=== PATIENT | female | born 1965 | race Caucasian/White ===

== ENCOUNTER → 2018-03-03 | Outpatient (CLI) | payer BC, OTHER ==
[2016-01-01 17:32] VITALS: BP 150/76
[~2018-03-03] MED LIST: AZEL23SP NS; DEXL60CA2 PO; DOCU-109 PO; FERR159T3 PO; IRON1CAP14 PO; LISI-334 PO; METF10007 PO; NAPR-514 PO; PRED-220 PO; PSYL0.527 PO; TRIA15OI TP; [UNRECOGNIZED DRUG - REMARK] PO; [UNRECOGNIZED DRUG - REMARK] PO
--- NOTE | 2018-03-03 16:27 | KCIC ---
Complete abdomen ultrasound study Clinical indications: Abdominal pain FINDINGS: The pancreas is poorly visualized due to overlying bowel gas. No focal aneurysmal dilatation of the abdominal aorta is seen. The intrahepatic portion of the IVC is unremarkable. Fatty infiltration of the liver is seen. This decreases the sensitivity of sonography to detect focal hepatic lesions. The liver is enlarged measuring 21.2 cm in length. The gallbladder is normal without gallstones. The extra hepatic bile duct measures 10 mm in caliber which is dilated. The length of the right kidney is 12.2 cm and the length of the left kidney is 12.8 cm. No hydronephrosis or renal mass or perinephric fluid collection is seen on either side. The spleen measures 12.1 cm in length which is normal. No ascites is evident. IMPRESSION: Normal gallbladder. Dilated common bile duct measuring up to 10 mm in caliber. Correlation with liver function tests is recommended since a distal common bile duct obstruction is possible. Hepatomegaly. Fatty infiltration of the liver. Electronically signed by: Chaparro Levy MD (03/03/2018 4:24 PM) [facility]
--- NOTE | 2018-03-03 16:47 | KCIC ---
Thyroid sonogram Clinical indications: Enlarged thyroid gland FINDINGS: The longitudinal and AP and transverse dimensions of the right lobe are 0.9 cm and 1.6 cm and 2.0 cm respectively. The right lobe is heterogeneous with multiple small nodules. The largest nodule is seen within the inferior aspect measuring 9 mm in size. Isthmus measures 6 mm in thickness and contains a solid heterogeneous nodule measuring 11 mm in size. The longitudinal and AP and transverse dimensions of the left lobe are 3.9 cm and 1.4 cm and 1.9 cm respectively. The left lobe is heterogeneous with multiple small nodules. There is a hypoechoic nodule within the posterior mid aspect measuring 9 mm. This has a cystic appearance. IMPRESSION: Multiple thyroid nodules. Recommend six-month follow-up sonogram. Electronically signed by: Chaparro Levy MD (03/03/2018 4:43 PM) [facility]
== END | disposition home or self-care (01) ==
LOC: KCIC US 12:19
PROVIDERS: ATTEND Family Medicine
DX: E04.2 Nontoxic multinodular goiter (principal); K76.0 Fatty (change of) liver, not elsewhere classified; K83.8 Other specified diseases of biliary tract; R16.0 Hepatomegaly, not elsewhere classified
CPT/HCPCS: 76536; 76700

== ENCOUNTER → 2018-03-28 | Outpatient (CLI) | payer BC ==
[2016-01-01 17:32] VITALS: BP 150/76
--- NOTE | 2018-03-28 12:13 | KCIC ---
History: Routine screening. Technique: Bilateral digital mammographic routine views were obtained with CAD - computer aided detection. Comparison: March 05, 2015. Findings: Breast Tissue Density B :The breast tissue is composed of mixed fatty and fibroglandular tissue. There is a small periareolar density on the left seen on the CC view only. There are no suspicious microcalcifications or areas of architectural distortion. Impression: Recommend the patient return for an anteriorly compressed MLO view of the left breast with the nipple in profile. Ultrasound may be necessary as well to exclude possible small periareolar mass. The patient and the clinical service will be contacted by the radiology staff for further instructions. BI-RADS Category 0: Incomplete: Need additional imaging evaluation. A mammogram does not have 100% sensitivity and therefore a negative imaging study should not delay further work up of a suspicious abnormality. The patient will receive a letter with the results in the mail. Patient information is entered into the reminder system with a target due date for the next screening mammogram. The patient will receive a reminder. "Our facility is accredited by the [employer] Mammography Program." Electronically signed by: Kavon Morgan III, MD (03/28/2018 12:09 PM) [facility]
== END | disposition home or self-care (01) ==
LOC: KCIC MAMMO 09:44
PROVIDERS: ATTEND Family Medicine
DX: Z12.31 Encounter for screening mammogram for malignant neoplasm of breast (principal)
CPT/HCPCS: 77067

== ENCOUNTER → 2018-04-21 | Outpatient (CLI) | payer BC ==
[2016-01-01 17:32] VITALS: BP 150/76
--- NOTE | 2018-04-22 17:14 | KCIC ---
Left breast diagnostic digital mammogram: Reason for examination: Possible nodule on screening mammogram. Comparison is made to previous study dated 03/28/2018. Additional left oblique view was obtained for further evaluation of possible nodule seen on cc view. In the retroareolar 3:00 position, there appears to be a tiny hypodense 4.7 mm nodule and superiorly in the left breast 2 cm above the nipple at the 1:30 position, there is a 1 cm nodule. Further evaluation with ultrasound will follow. IMPRESSION: Small nodules persist anteriorly in the left breast. Ultrasound to follow. BI-RADS Category 0: Incomplete. Needs additional imaging evaluation. Left breast ultrasound: Left whole breast ultrasound including evaluation of all 4 quadrants and the retroareolar and axillary regions of the left breast was performed. In the 1:30 position 2 cm from the nipple, there is a 9.3 x 6.8 x 3.2 mm hypoechoic nodule which appears to show some vascular flow. This lies fairly superficially within the parenchyma. This corresponds with the lesion seen at the 1:30 position mammographically. In the retroareolar 3:00 position, there is a hypoechoic circumscribed lesion measuring 4.6 mm in size. Further evaluation with aspiration or biopsy is recommended. No other cystic or solid lesions are seen. No abnormal appearing lymph nodes are seen in the axilla. IMPRESSION: 9.3 mm solid nodule with increased vascularity in the 1:30 position 2 cm from the nipple. Recommend ultrasound biopsy. 4.6 mm hypoechoic nodule in the retroareolar 3:00 position. Recommend aspiration or biopsy. BI-RADS Category 4: Suspicious. These findings have been discussed with the patient and the patient's nurse practitioner, Divine Beckwith, will be notified about these findings. This patient's information has been entered into a reminder system for the patient to be notified with the results of her examination and a target date for the next mammogram. "Our facility is accredited by the [employer] Mammography Program." Electronically signed by: Elyse Aguayo MD (04/22/2018 5:09 PM) [facility]
== END | disposition home or self-care (01) ==
LOC: KCIC MAMMO 10:07
PROVIDERS: ATTEND Nurse Practitioner Family
DX: N63.21 Unspecified lump in the left breast, upper outer quadrant (principal)
CPT/HCPCS: 76641; 77065

== ENCOUNTER → 2018-11-18 | Outpatient (CLI) | payer BC ==
[2016-01-01 17:32] VITALS: BP 150/76
--- NOTE | 2018-11-18 16:51 | KCIC ---
Left breast diagnostic digital mammograms with 3-D tomosynthesis: Reason for examination: Follow-up nodules after biopsy. Comparison is made to previous studies dated 04/21/2018 and 03/28/2018. Bilateral mammograms in CC and oblique projections were obtained with 2-D imaging and 3-D tomosynthesis imaging on a Siemens Inspiration unit and reviewed on the workstation. Interpretation was made with the benefit of CAD. The skin and nipples show no abnormalities. No abnormal axillary lymph nodes are seen. The breast parenchyma shows scattered fatty and fibroglandular density. (Breast density: Category B.) There continue to be small nodules containing biopsy clips in the retroareolar 3:00 position and at the 1:30 position anteriorly. There are no new dominant masses, suspicious calcifications or architectural distortion. Impression: Biopsy clip seen within the nodules at the retroareolar 3:00 and 1:30A positions. Ultrasound to follow. BI-RAD Category 0: Incomplete. Needs additional imaging evaluation. Left breast ultrasound: Comparison is made to previous study dated 04/21/2018. In the 1:30 position 2 cm from the nipple, there continues to be 10 x 6 mm hypoechoic lesion contained a biopsy clip. In the retroareolar 3:00 position, there continues to be a small 3.5 mm nodule contained a biopsy clip. No additional cystic or solid lesions are seen. No abnormal appearing lymph nodes are seen in the axilla. IMPRESSION: No significant change in the fibroadenoma at the 1:30 and retroareolar 3:00 positions. Recommend routine mammographic follow-up. BI-RADS Category 2: Benign. "Our facility is accredited by the [employer] Mammography Program." This patient's information has been entered into a reminder system for the patient to be notified with the results of her examination and a target date for the next mammogram. Electronically signed by: Elyse Aguayo MD (11/18/2018 4:48 PM) [facility]
== END | disposition home or self-care (01) ==
LOC: KCIC MAMMO 12:37
PROVIDERS: ATTEND Nurse Practitioner Family
DX: D24.2 Benign neoplasm of left breast (principal)
CPT/HCPCS: 76641; 77065; G0279; 77061

== ENCOUNTER → 2019-03-10 | Outpatient (CLI) | payer BC ==
[2016-01-01 17:32] VITALS: BP 150/76
--- NOTE | 2019-03-10 14:07 | EKG ---
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
== END | disposition home or self-care (01) ==
LOC: EKG 13:39
PROVIDERS: ATTEND Anesthesiology
DX: Z01.818 Encounter for other preprocedural examination (principal)
CPT/HCPCS: 93005

== ENCOUNTER → 2019-03-28 | Outpatient (CLI) | payer BC ==
[2016-01-01 17:32] VITALS: BP 150/76
--- NOTE | 2019-03-31 16:32 | KCIC ---
BILATERAL SCREENING MAMMOGRAM, 3-D History: Routine screening. Comparison: Bilateral mammogram 03/28/2018. Technique: MLO and CC digital tomosynthesis (3D) images obtained. Radiologist reviewed these images on dedicated workstation. Findings: Breast Tissue Density B : There are scattered areas of fibroglandular density. There are 2 biopsy clips in the subareolar left breast. Bilateral glandular nodularity is stable. There are no dominant masses, suspicious microcalcifications, or architectural distortion. IMPRESSION: No mammographic evidence of malignancy. Recommend routine screening. BI-RADS category 2: Benign findings. The images were reviewed with computer-aided detection. Patient information is entered into reminder system with a target due date for the next screening mammogram. Mammography is the most sensitive method for finding small breast cancers, but it does not detect them all and is not a substitute for careful clinical examination. A negative mammogram does not negate a clinically suspicious finding and should not result in delay in biopsying a clinically suspicious abnormality. "Our facility is accredited by the [employer] Mammography Program." Electronically signed by: Anatoliy Carter MD (03/31/2019 4:30 PM) [facility]
== END | disposition home or self-care (01) ==
LOC: KCIC MAMMO 11:22
PROVIDERS: ATTEND Nurse Practitioner Family
DX: Z12.31 Encounter for screening mammogram for malignant neoplasm of breast (principal)
CPT/HCPCS: 77063; 77067

== ENCOUNTER → 2020-04-25 | Outpatient (CLI) | payer BC, OTHER ==
[2016-01-01 17:32] VITALS: BP 150/76
--- NOTE | 2020-04-25 15:36 | KCIC ---
EXAM: Bilateral digital screening mammogram with tomosynthesis. HISTORY: 54-year-old female presents for screening mammography. TECHNIQUE: Full-field digital craniocaudal and mediolateral oblique 2D and 3D tomosynthesis images of both breasts are obtained for evaluation. Computer aided detection was applied. COMPARISON: 03/28/2019 and 11/18/2018 and 04/21/2018 BREAST PARENCHYMAL DENSITY: Level B - Scattered fibroglandular densities. FINDINGS: There is a circumscribed nodular density within the posterior 8:00 position of the right br east centered approximately 14.5 cm the nipple which is more conspicuous compared to the most recent comparison study. There are few additional stable solid-appearing nodular densities, favoring a benig n etiology such as cysts or intraparenchymal lymph nodes. There are biopsy clips within the anterior left breast. There is no suspicious calcification or architectural distortion. IMPRESSION: BI-RADS Category 0: Additional imaging needed. RECOMMENDATION: Further evaluation with a right breast sonogram is recommended to assess nodularity a t the posterior 8:00 position, possibly due to a cyst or intramammary lymph node. If your mammogram demonstrates that you have dense breast tissue, which could hide abnormalities, and if you have other risk factors for breast cancer that have been identified, you might benefit from s upplemental screening tests that may be suggested by your ordering physician. Dense breast tissue, i n and of itself, is a relatively common condition. This information is not provided to cause undue c oncern, but rather to raise your awareness and to promote discussion with your physician regarding th e presence of other risk factors, in addition to dense breast tissue. A report of your mammography re sults will be sent to you and your physician. You should contact your physician if you have any ques tions or concerns regarding this report. Mammography is a sensitive method for finding small breast cancers, but it does not detect them all a nd is not a substitute for careful clinical examination. A negative mammogram does not negate a clin ically suspicious finding and should not result in delay in biopsying a clinically suspicious abnorma lity. PQRS compliance statement - Patient information was entered into a reminder system with a target due date for the next mammogram. "Our facility is accredited by the [employer] Mammography Program." Electronically signed by: Mady Still MD (04/25/2020 3:34 PM) [facility]
== END ==
LOC: KCIC MAMMO 13:05
PROVIDERS: ATTEND Nurse Practitioner Family
DX: Z12.31 Encounter for screening mammogram for malignant neoplasm of breast (principal); N64.89 Other specified disorders of breast
CPT/HCPCS: 77063; 77067

== ENCOUNTER → 2020-04-30 | Outpatient (CLI) | payer OTHER ==
[2016-01-01 17:32] VITALS: BP 150/76
[~2020-04-30] MED LIST changes: -LISI-334 PO; +LISI20TA18 PO
--- NOTE | 2020-05-13 08:59 | RAD ---
Examination: Right breast ultrasound INDICATION: Screening recall for right breast mass COMPARISON: Screening mammogram of 04/17/2020 TECHNIQUE: Targeted ultrasound of the lower outer quadrant right breast was performed along with sono graphic survey of the right axilla. FINDINGS: Targeted ultrasound of the lower outer quadrant right breast identifies a parallel orientation circum scribed 1 cm mass at the 8:00 position 14 cm from the nipple that is a sonographically benign mass th at shows no internal vascularity. There is a cleft of increased echogenicity centrally that is compat ible with a fatty hilum. Sonographic finding corresponds with the mammographic finding and is benign. Sonographic survey of the right axilla reveals no adenopathy. IMPRESSION: Benign findings on targeted right breast ultrasound, compatible with a small intramammary lymph node. BI-RADS Category 2 Benign findings Recommend return to routine screening next due in one year. Patient entered into a reminder system with targeted due date for next mammogram. Electronically signed by: Frank Arvizu MD (05/13/2020 8:57 AM) [id number]
== END ==
LOC: US 11:20
PROVIDERS: ATTEND Nurse Practitioner Family
DX: N63.13 Unspecified lump in the right breast, lower outer quadrant (principal)
CPT/HCPCS: 76641

== ENCOUNTER → 2021-04-29 | Outpatient (CLI) | payer OTHER ==
[2016-01-01 17:32] VITALS: BP 150/76
--- NOTE | 2021-04-29 21:54 | KCIC ---
Exam: Right RIBS 2 views INDICATION: Right posterior lower rib pain for over a month TECHNIQUE: Frontal and oblique views of the right ribs Comparisons: None FINDINGS: No displaced rib fractures. Visualized soft tissues are unremarkable. IMPRESSION: No displaced rib fractures. Electronically signed by: Debbie Rosa MD (04/29/2021 9:52 PM) [facility]
== END ==
LOC: KCIC 14:59
PROVIDERS: ATTEND Nurse Practitioner Family
DX: R07.81 Pleurodynia (principal)
CPT/HCPCS: 71100

== ENCOUNTER 2021-08-23 11:39 | Emergency (ER) | payer OTHER ==
[~2021-08-23] VITALS: Ht 177.8 cm; Wt 140.0 kg
[2021-08-23] MEDS ORDERED: levETIRAcetam 1,000mg PREMIX 100 ML IV ONE ×2 (12:00)
[2021-08-23] MEDS ORDERED: LEVETIRACETAM IV ONE (12:15)
[2021-08-23] MEDS ORDERED: NORMAL SALINE IV ONE (12:15)
[2021-08-23 12:56] VITALS: BP 154/74
[2021-08-23 13:10] LABS: BASO # 0.1 x10^3/uL (0.0-0.2); BASO % 1 % (0-3); EOS # 0.3 x10^3/uL (0.0-0.7); EOS % 4 % (0-3); HEMATOCRIT 39.4 % (36.0-47.0); HEMOGLOBIN 12.9 g/dL (12.0-15.5); LYMPH # 1.7 x10^3/uL (1.0-4.8); LYMPH % 18 % (24-48); MEAN CORPUSCULAR HEMOGLOBIN 26 pg (25-35); MEAN CORPUSCULAR HGB CONC 33 g/dL (31-37); MEAN CORPUSCULAR VOLUME 79 fL (79-100); MONO # 0.4 x10^3/uL (0.0-1.1); MONO % 5 % (0-9); NEUT # 6.7 x10^3/uL (1.8-7.7); NEUT % 73 % (31-73); PLATELET COUNT 252 x10^3/uL (140-400); RED CELL DISTRIBUTION WIDTH 15.9 % (11.5-14.5); WHITE BLOOD COUNT 9.2 x10^3/uL (4.0-11.0)
[2021-08-23 13:22] LABS: CALCIUM 8.7 mg/dL (8.5-10.1); CREATININE 1.1 mg/dL (0.6-1.0); GFR 51.8; POTASSIUM 4.4 mmol/L (3.5-5.1)
--- NOTE | 2021-08-23 13:23 | RAD ---
PQRS Compliance Statement: One or more of the following individualized dose reduction techniques were utilized for this examinat ion: 1. Automated exposure control 2. Adjustment of the mA and/or kV according to patient size 3. Use of iterative reconstruction technique CT head without contrast 08/23/2021 12:30 PM INDICATION: Seizure COMPARISON: None available TECHNIQUE: Multiple axial CT images of the head were obtained from skull base through the vertex with out intravenous contrast. FINDINGS: Head: Ventricles, sulci and basal cisterns are within normal limits. There is no hydrocephalus. Olmos-white matter differentiation is normal. There is no acute intracranial hemorrhage. There is no mass, mass e ffect or midline shift. Posterior fossa is normal in appearance. Visualized portions of the orbits are normal. Paranasal sinuses are well aerated. Mastoid air cells a re well aerated. Scalp and calvaria are normal. IMPRESSION: No acute intracranial hemorrhage. Electronically signed by: Yvette Lemon MD (08/23/2021 1:20 PM) [id number]
[2021-08-23 13:24] LABS: ALBUMIN 3.6 g/dL (3.4-5.0); ALBUMIN/GLOBULIN RATIO 0.9 (1.0-1.7); TOTAL BILIRUBIN 0.2 mg/dL (0.2-1.0); TOTAL PROTEIN 7.6 g/dL (6.4-8.2)
[2021-08-23 13:42] LABS: BARBITURATES NEG (NEG); BENZODIAZEPINES NEG (NEG); CANNABINOIDS NEG (NEG); COCAINE NEG (NEG); METHADONE NEG (NEG); OPIATES NEG (NEG); PHENCYCLIDINE NEG (NEG)
[2021-08-23 13:43] LABS: AMPHETAMINE/METHAMPHETAMINE NEG (NEG)
[2021-08-23 13:47] LABS: BACTERIA,URINE FEW /HPF (0-FEW); RBC,URINE 0 /HPF (0-2); WBC,URINE OCC /HPF (0-4)
[2021-08-23] MEDS ORDERED: CARB200T PO (14:56)
--- NOTE | 2021-08-23 14:59 | PHYS DOC ---
Past Medical History Past Surgical History: No Surgical History Smoking Status: Never Smoker Alcohol Use: None General Adult EDM: Chief Complaint: SEIZURE HPI: HPI: Patient is a 55-year-old female who presents to the emergency department izaguirre sported by EMS scoop filler who reports patient had a witnessed seizure at home that lasted approximately 15 seconds, grand mal type in nature per patient's 's report, patient was postictal during transport to emergency department, had no further seizure-like activity, during transport, during t riage with patient, patient did have grand mal seizure lasting approximately 10 seconds, patient was placed on high flow oxygen for nonrebreather, was given 2 mg Ativan for seizure-like activity intravenously. HPI is limited to patient's seizure-like activity. Per patient's at bedside, patient had a history of seizures when she was younger at age approximately 20 or 21, was taken off medications and 1998 and has not been on seizure medication since, had no further seizure-like activity until today, patient's denies the patient having stressful events, any illnesses that he is aware of, states she is a type II diabetic, the patient's blood glucose was 199 in route taken by transport scoop filler, patient no longer sees a neurologist, sees MIC Beckwith for primary care. Review of Systems: Review of Systems: 14 body systems of review of systems have been reviewed. See HPI for pertinent positives and negative responses, otherwise all other systems are negative, nonpertinent or noncontributory. Constitutional: Negative except as outlined in HPI above. Skin: Negative except as outlined in HPI above. Eyes: Negative except as outlined in HPI above. HENT: Negative except as outlined in HPI above. Respiratory: Negative except as outlined in HPI above. Cardiovascular: Negative except as outlined in HPI above. GI: Negative except as outlined in HPI above. : Negative except as outlined in HPI above. Musculoskeletal: Negative except as outlined in HPI above. Integument: Negative except as outlined in HPI above. Neurologic: Negative except as outlined in HPI above. Endocrine: Negative except as outlined in HPI above. Lymphatic: Negative except as outlined in HPI above. Psychiatric: Negative except as outlined in HPI above. Heart Score: C/O Chest Pain: No Risk Factors: Risk Factors: DM, Current or recent (<one month) smoker, HTN, HLP, family history of CAD, obesity. Risk Scores: Score 0 - 3: 2.5% MACE over next 6 weeks - Discharge Home Score 4 - 6: 20.3% MACE over next 6 weeks - Admit for Clinical Observation Score 7 - 10: 72.7% MACE over next 6 weeks - Early Invasive Strategies Current Medications: Current Medications Medications (Trade) Dose Ordered Sig/Gayathri Start Time Stop Time Status Last Admin Dose Admin Levetiracetam 2000 mg/Sodium Chloride 120 ml @ 480 mls/hr 1X ONCE 08/23/21 12:15 08/23/21 12:29 DC 08/23/21 12:21 480 MLS/HR Lorazepam (Ativan Inj) 2 mg 1X ONCE 08/23/21 12:00 08/23/21 12:01 DC 08/23/21 12:02 2 MG Allergies: Allergies: Allergies Coded Allergies Type Severity Reaction Last Updated Verified Influenza Virus Vaccines Allergy Intermediate 12/30/15 Yes erythromycin base Allergy Intermediate 12/30/15 Yes Physical Exam: PE: Constitutional: Well developed, well nourished, no acute distress, non-toxic appearance. 55-year-old female in no apparent distress. HENT: Normocephalic, atraumatic. Eyes: Conjunctiva normal, no discharge. Neck: Normal range of motion, no stridor. Cardiovascular: No cyanosis appreciated, distal cap refill less than 2 seconds. Lungs & Thorax: Patient is in no respiratory distress, no audible adventitious lung sounds appreciated. Abdomen: Nontender, no abnormalities noted. Skin: Warm, dry, no erythema, no rash. Back: No tenderness, no deformities. Extremities: No tenderness, no cyanosis, no clubbing, ROM intact, no edema. Neurologic: Alert and oriented X 3, normal motor function, normal sensory function, no focal deficits noted. Psychologic: Affect normal, judgement normal, mood normal. Current Patient Data: Labs: Laboratory Tests Test 08/23/21 12:16 08/23/21 13:22 White Blood Count 9.2 x10^3/uL (4.0-11.0) Red Blood Count 5.00 x10^6/uL (3.50-5.40) Hemoglobin 12.9 g/dL (12.0-15.5) Hematocrit 39.4 % (36.0-47.0) Mean Corpuscular Volume 79 fL (79-100) Mean Corpuscular Hemoglobin 26 pg (25-35) Mean Corpuscular Hemoglobin Concent 33 g/dL (31-37) Red Cell Distribution Width 15.9 % (11.5-14.5) H Platelet Count 252 x10^3/uL (140-400) Neutrophils (%) (Auto) 73 % (31-73) Lymphocytes (%) (Auto) 18 % (24-48) L Monocytes (%) (Auto) 5 % (0-9) Eosinophils (%) (Auto) 4 % (0-3) H Basophils (%) (Auto) 1 % (0-3) Neutrophils # (Auto) 6.7 x10^3/uL (1.8-7.7) Lymphocytes # (Auto) 1.7 x10^3/uL (1.0-4.8) Monocytes # (Auto) 0.4 x10^3/uL (0.0-1.1) Eosinophils # (Auto) 0.3 x10^3/uL (0.0-0.7) Basophils # (Auto) 0.1 x10^3/uL (0.0-0.2) Sodium Level 141 mmol/L (136-145) Potassium Level 4.4 mmol/L (3.5-5.1) Chloride Level 103 mmol/L (98-107) Carbon Dioxide Level 16 mmol/L (21-32) L Anion Gap 22 (6-14) H Blood Urea Nitrogen 16 mg/dL (7-20) Creatinine 1.1 mg/dL (0.6-1.0) H Estimated GFR (Cockcroft-Gault) 51.8 BUN/Creatinine Ratio 15 (6-20) Glucose Level 180 mg/dL (70-99) H Calcium Level 8.7 mg/dL (8.5-10.1) Total Bilirubin 0.2 mg/dL (0.2-1.0) Aspartate Amino Transferase (AST) 17 U/L (15-37) Alanine Aminotransferase (ALT) 18 U/L (14-59) Alkaline Phosphatase 84 U/L (46-116) Total Protein 7.6 g/dL (6.4-8.2) Albumin 3.6 g/dL (3.4-5.0) Albumin/Globulin Ratio 0.9 (1.0-1.7) L Ethyl Alcohol Level < 10 mg/dL (0-10) Urine Collection Type Unknown Urine Color (Auto) Light yellow Urine Turbidity Clear Urine pH (Auto) 5.0 (<5.0-8.0) Urine Specific [place] 1.020 (1.000-1.030) Urine Protein (Auto) 30 mg/dL (Negative) Urine Glucose (Auto)(UA) Negative mg/dL (Negative) Urine Ketones (Auto) Trace mg/dL (Negative) Urine Blood (Auto) Small (Negative) Urine Nitrite (Auto) Negative (Negative) Urine Bilirubin (Auto) Negative (Negative) Urine Urobilinogen (Auto) Normal mg/dL (Normal) Urine Leukocyte Esterase (Auto) Negative (Negative) Urine RBC 0 /HPF (0-2) Urine WBC Occ /HPF (0-4) Urine Squamous Epithelial Cells Mod /LPF Urine Bacteria Few /HPF (0-FEW) Urine Mucus Mod /LPF Urine Opiates Screen Neg (NEG) Urine Methadone Screen Neg (NEG) Urine Barbiturates Neg (NEG) Urine Phencyclidine Screen Neg (NEG) Urine Amphetamine/Methamphetamine Neg (NEG) Urine Benzodiazepines Screen Neg (NEG) Urine Cocaine Screen Neg (NEG) Urine Cannabinoids Screen Neg (NEG) Urine Ethyl Alcohol Neg (NEG) Laboratory Tests 08/23/21 12:16 Laboratory Tests 08/23/21 12:16 Vital Signs: Vital Signs Date Time Temp Pulse Resp B/P (MAP) Pulse Ox O2 Delivery O2 Flow Rate FiO2 08/23/21 12:56 74 20 98 08/23/21 11:59 97.4 97.4 EKG: EKG: EKG performed at 1156 per ED nursing staff shows a sinus tachycardia heart rate 113 bpm, no other ectopy appreciated, IA interval 0.166, QTc interval 0.450, no acute STEMI, no ACS, no acute ischemia appreciated, EKG interpreted by ED attending physician Dr. Israel. Radiology/Procedures: Radiology/Procedures: REASON: Seizure PROCEDURE: CT HEAD WO CONTRAST PQRS Compliance Statement: One or more of the following individualized dose reduction techniques were utilized for this examination: 1. Automated exposure control 2. Adjustment of the mA and/or kV according to patient size 3. Use of iterative reconstruction technique CT head without contrast 08/23/2021 12:30 PM INDICATION: Seizure COMPARISON: None available TECHNIQUE: Multiple axial CT images of the head were obtained from skull base through the vertex without intravenous contrast. FINDINGS: Head: Ventricles, sulci and basal cisterns are within normal limits. There is no hydrocephalus. Ol[place]-white matter differentiation is normal. There is no acute intracranial hemorrhage. There is no mass, mass effect or midline shift. Posterior fossa is normal in appearance. Visualized portions of the orbits are normal. Paranasal sinuses are well aerate d. Mastoid air cells are well aerated. Scalp and calvaria are normal. IMPRESSION: No acute intracranial hemorrhage. Electronically signed by: Yvette Lemon MD (08/23/2021 1:20 PM) [id number] Course & Med Decision Making: Course & Med Decision Making Pertinent Labs and Imaging studies reviewed. (See chart for details) 55-year-old female, vital signs reviewed, presents to the emergency department concerning seizure-like activity. During nursing triage patient had a grand mal seizure that lasted approximately 10 seconds, patient was postictal, a nonrebre ather at 10 L O2 was placed, ordered 2 mg Ativan, CBC, CMP, urinalysis assay, urine drug screen, serum ethanol, CT head without contrast, serum creatinine kinase, ED attending physician Dr. Israel recommended 2 g Keppra IV. Patient's CT head without contrast unremarkable, labs are unremarkable, urine drug screen is negative, there is no serum alcohol level present, patient's urine is not infected, the patient is no longer postictal, patient is now alert and oriented x3, no apparent distress, denies aches or pains, states she feels a little groggy however wishes to go home, patient reports she was on Tegretol when she was younger but has been off of Tegretol since 1997 and has had no further neurologic follow-up, discussed with patient will call and discuss her case with neurologist specialist Dr. Robles. Patient does complain of a swollen tongue, upon reevaluation there are teeth [place] on the left lateral tongue area, swelling suspicious of status post biting tongue during seizure- like activity, low suspicion for allergy reaction, patient has normal phonation, denies numbness or tingling to tongue, states it is painful in the lateral aspect where it is suspected she bit her tongue during seizure-like activity, will give p.o. Benadryl for allergy component. Patient is amenable to ED planning. Discussed patient case and ED work-up with neurology specialist Dr. Robles wh o recommended patient start outpatient therapy of Tegretol 200 mg twice daily, follow-up in his office soon. Discussed Dr. Robles's recommendations with patient, call Wednesday for an appointment for evaluation of seizure activity, discussed prescription for Tegretol, side effects were reviewed, return to ER precautions or concerns were reviewed, patient gave verbal understanding of and is amenable to ED discharge planning. Discussed with the patient all findings and diagnostic testing as well as the need to follow-up with their primary care provider for further evaluation and treatment or return to the ED if any new or worsening symptoms. Strict return precautions were also discussed at length, the patient voiced understanding and agreement with the discharge planning. The patient was nontoxic in appearance, in no apparent distress, and hemodynamically stable at the time of disposition. Dragon Disclaimer: Dragon Disclaimer: This electronic medical record was generated, in whole or in part, using a voice recognition dictation system. Departure Departure Impression: Primary Impression: Grand mal seizure Disposition: 01 HOME / SELF CARE / HOMELESS Condition: GOOD Referrals: DIVINE BECKWITH APRN (PCP) CURTIS MARTINEZ MD Patient Instructions: Seizure, Adult Additional Instructions: You were seen today in the emergency department after having 2 grand mal seizures. You were given IV Ativan for an active seizure in the emergency department, this was followed by an infusion of Keppra. Keppra is a antiseizure type medication. The lab work and CT scan and urine studies were unremarkable and did not show any concerning signs that would warrant admission to the hospital or immediate attention by hospital specialist. I did discuss your case with a neurology specialist Dr. Robles who recommended you call his office this coming Wednesday for an appointment to be evaluated for seizure activity. I am starting you on Tegretol 200 mg twice a day. Please take as directed, please return to the emergency department for worsening symptoms or other concerns. Please call and discussed this with your primary care provider [facility] Beckwith so that she is aware of your new medications. Thank you for visiting our Emergency Department. It was a pleasure taking care of you today in the emergency department and we appreciate you trusting us with your care. If any additional problems come up don't hesitate to return to visit us. Please follow up with your primary care provider so they can plan additional care if needed and know about the problem that you had. If symptoms worsen come back to the Emergency Department. Any concerning symptoms that start such as chest pain, shortness of air, weakness or numbness on one side of the body, running high fevers or any other concerning symptoms return to the ER. Scripts Carbamazepine (TEGRETOL) 200 Mg Tablet 1 TAB PO BID for Seizure, #60 TAB 2 Refills Prov: JONNY SKINNER APRN 08/23/21 JONNY SKINNER APRN August 23, 2021 14:59
[2021-08-23] MEDS ORDERED: diphenhydrAMINE HCL 25 MG CAPSULE PO ONE (15:00)
--- NOTE | 2021-08-26 10:52 | EKG ---
[facility] [address] [place] [address] Test Date: 2021-08-23 Test Time: 12:54:15 Pat Name: HEATHER INMAN Department: Room: Gender: F Reference Investigator: : 1965 Requested By: JONNY SKINNER Order Number: [id number] Reading MD: Omer Call MD Measurements Intervals [place] Rate: 100 P: -21 NC: 162 QRS: 41 QRSD: 94 T: 33 QT: 362 QTc: 470 Interpretive Statements SINUS RHYTHM NON-SPECIFIC ST/T CHANGES Electronically Signed On 08-26-2021 11:08:06 CDT by Omer Call MD
== END 2021-08-23 15:38 | disposition home or self-care (01) ==
LOC: ER 11:39
DX: G40.409 Other generalized epilepsy and epileptic syndromes, not intractable, without status epilepticus (principal); Z88.1 Allergy status to other antibiotic agents; Z88.7 Allergy status to serum and vaccine
CPT/HCPCS: 36415; 70450; 80053; 80307; 81001; 82550; 85025; 93005; 96365; 96375; 99285; G0480; J1953; J2060; Q0163